=== PATIENT | female | born 2005 | race Hispanic/Latino ===

== ENCOUNTER 2023-06-28 09:34 | Emergency (ER) | payer OTHER, BC ==
[~2023-06-28] VITALS: Ht 162.6 cm; Wt 115.7 kg
[2023-06-28] MEDS: TETANUS/DIPHTHERIA TOXOID [ADULT] 0.5 ML VIAL IM ONE (09:57)
[2023-06-28] MEDS ORDERED: IBUP-2070 PO (11:19)
[2023-06-28] MEDS ORDERED: CEPH500B PO (11:19)
[2023-06-28 11:39] VITALS: BP 118/69; PULSE 78; RESP 16; O2SAT 99
== END 2023-06-28 11:35 | disposition home or self-care (01) ==
LOC: EDH 09:34
DX: S91.332A Puncture wound without foreign body, left foot, initial encounter (principal); W22.8XXA Striking against or struck by other objects, initial encounter; Y93.89 Activity, other specified; Y92.89 Other specified places as the place of occurrence of the external cause; Y99.8 Other external cause status
CPT/HCPCS: 73620; 81025; 90471; 90714